=== PATIENT | male | born 1985 | race Caucasian/White ===

== ENCOUNTER 2017-10-15 17:07 | Emergency (ER) | payer SELFPAY ==
[~2017-10-15] VITALS: Ht 182.9 cm; Wt 148.5 kg
[2017-10-15 17:30] VITALS: Ht 182.9 cm; Wt 148.5 kg
[2017-10-15 19:16] VITALS: BP 117/86
== END 2017-10-15 19:16 | disposition home or self-care (01) ==
LOC: ED 17:07
DX: R51 Headache (principal); M54.9 Dorsalgia, unspecified; I10 Essential (primary) hypertension; V49.9XXA Car occupant (driver) (passenger) injured in unspecified traffic accident, initial encounter; Y93.89 Activity, other specified; Y92.89 Other specified places as the place of occurrence of the external cause; Y99.8 Other external cause status
CPT/HCPCS: J1885